=== PATIENT | female | born 1970 | race Caucasian/White ===

== ENCOUNTER 2016-06-17 06:55 | Inpatient (IN) | payer BC ==
[~2016-06-17] VITALS: Ht 157.5 cm; Wt 115.4 kg
[~2016-06-17 06:55] MED LIST: ALLERGY RELIEF10 M1 PO; AUGMENTIN875 MG PO; Augmentin PO; CELEBREX200 MG PO; HYDROCHLOROTHIA25 MG PO; HYZAAR 100-11 TABLET PO; IRON325 MG PO; MIRENA52 MG IY; MOTRIN800 MG PO; OMEPRAZOLE40 M1 PO; PAIN RELIEF EX500 MG PO; TYLENOL EXTRA500 MG PO; VITAMIN D-32000 UNI2 PO
[2016-06-17 07:51] VITALS: BP 104/57
[2016-06-17] MEDS ORDERED: COUMADIN2.5 MG PO (10:00)
[2016-06-17] MEDS ORDERED: PERCOCET 5/31 TABLET PO (10:00)
[2016-06-17] MEDS ORDERED: VISTARIL25 MG PO (10:00)
[2016-06-17 14:05] VITALS: BP 117/59
[2016-06-17 15:17] LABS: INTERNAL CONTROL VALID? YES
[2016-06-17 15:39] VITALS: BP 127/69
[2016-06-17 19:51] VITALS: BP 125/71
[2016-06-17 23:43] VITALS: BP 108/59
[2016-06-18 03:43] VITALS: BP 129/56
[2016-06-18 05:52] LABS: HEMATOCRIT 37.6 % (36.0-46.0); MCV 88.5 FL (83-99)
[2016-06-18 06:20] LABS: ANION GAP 9 MEQ/L (2-14); CHLORIDE 99 MEQ/L (99-109); GFR ESTIMATE (CALCULATED) > 59 mL/min/; GLUCOSE 119 mg/dL (70-99); POTASSIUM 4.2 MEQ/L (3.7-5.4); SAMPLE HEMOLYSIS CHECK 0; SAMPLE ICTERIC CHECK 0; SAMPLE LIPEMIA CHECK 0; SODIUM 134 MEQ/L (136-147); UREA NITROGEN (BUN) 18 mg/dL (9-23)
[2016-06-18 06:22] LABS: INTER. NORMALIZED RATIO 1.2; PROTHROMBIN TIME 11.9 (9.2-11.2)
[2016-06-18 07:59] VITALS: BP 111/51
[2016-06-18 12:02] VITALS: BP 108/56
[2016-06-18 15:49] VITALS: BP 120/60
[2016-06-18 19:24] VITALS: BP 136/63
[2016-06-19] VITALS: BP 143/63
[2016-06-19 03:29] VITALS: BP 145/78
[2016-06-19 04:58] LABS: HEMATOCRIT 35.1 % (36.0-46.0); MCV 86.9 FL (83-99)
[2016-06-19 05:11] LABS: INTER. NORMALIZED RATIO 2.1
[2016-06-19 05:14] LABS: PROTHROMBIN TIME 22.2 (9.2-11.2)
[2016-06-19 08:00] VITALS: BP 142/73
[2016-06-19 12:20] VITALS: BP 118/55
[2016-06-19 15:10] VITALS: BP 130/62
== END 2016-06-19 15:45 | DRG 470 ==
LOC: 2SOUTH 06:55 → 3WEST 13:45 → 2SOUTH 13:50 → 3WEST 06-19 15:45
PROVIDERS: Orthopaedic Surgery
DX: M17.12 Unilateral primary osteoarthritis, left knee (principal); Z68.42 Body mass index [BMI] 45.0-49.9, adult; I10 Essential (primary) hypertension; G47.30 Sleep apnea, unspecified; R73.03 Prediabetes; K21.9 Gastro-esophageal reflux disease without esophagitis
CPT/HCPCS: 80048; 84703; 85014; 85018; 85610; 94660; C1713; J0690; J1100; J1815; J1885; J2250; J2405; J3010; J7050

== ENCOUNTER 2016-08-24 12:23 | Emergency (ER) | payer BC ==
[~2016-08-24] VITALS: Ht 157.5 cm; Wt 115.2 kg
[~2016-08-24 12:23] MED LIST changes: +COUMADIN2.5 MG PO; +PERCOCET 5/31 TABLET PO; +VISTARIL25 MG PO
[2016-08-24 15:22] VITALS: BP 146/85
== END 2016-08-24 15:20 | disposition home or self-care (01) ==
LOC: EME 12:23
DX: R60.0 Localized edema (principal); M79.662 Pain in left lower leg; M25.562 Pain in left knee; Z98.890 Other specified postprocedural states; Z96.652 Presence of left artificial knee joint; I10 Essential (primary) hypertension
CPT/HCPCS: 93971; 99281; 99284

== ENCOUNTER 2017-04-30 12:42 | Emergency (ER) | payer OTHER, BC ==
[~2017-04-30] VITALS: Ht 157.5 cm; Wt 116.8 kg
[2017-04-30] MEDS ORDERED: MOTRIN600 MG PO (14:48)
[2017-04-30] MEDS ORDERED: FLEXERIL10 MG PO (14:48)
[2017-04-30 14:58] VITALS: BP 155/95
== END 2017-04-30 15:01 | disposition home or self-care (01) ==
LOC: EME 12:42
DX: S16.1XXA Strain of muscle, fascia and tendon at neck level, initial encounter (principal); S80.02XA Contusion of left knee, initial encounter; S90.32XA Contusion of left foot, initial encounter; I10 Essential (primary) hypertension; V49.50XA Passenger injured in collision with unspecified motor vehicles in traffic accident, initial encounter; Y92.410 Unspecified street and highway as the place of occurrence of the external cause; Z96.652 Presence of left artificial knee joint
CPT/HCPCS: 73564; 99281; 99282